=== PATIENT | female | born 1975 | race Caucasian/White ===

== ENCOUNTER 2019-06-27 23:12 | Emergency (ER) | payer MEDICAID, SELFPAY ==
[~2019-06-27] VITALS: Ht 68.6 cm; Wt 78.5 kg
--- NOTE | 2019-06-27 23:12 | NUR ---
PT TAKEN TO BED 12
[2019-06-27 23:14] VITALS: BP 124/83
--- NOTE | 2019-06-27 23:30 | NUR ---
44F PRESENTS TO ED WITH DAUGHTER C/O BODY ACHES ON BLE AND CHEST AND SUBJECTIVE FEVER X1 DAY. PT STATES SHE TOOK TYLENOL TODAY. PT AFEBRILE AT THIS TIME. CBL SOUNDS. S1S2 PRESENT THROUGHOUT. -LOC, -N/V/D, -FEVER PMH: DEVEN SESAY
--- NOTE | 2019-06-27 23:42 | NUR ---
DR GANN AT BEDSIDE EVALUATING PATIENT.
[2019-06-27] MEDS ORDERED: KETOROLAC 60 MG/2 ML VIAL IM ONE (23:45)
--- NOTE | 2019-06-27 23:50 | NUR ---
COVID SWAB, FLU SWAB COLLECTED AND SENT TO LAB
--- NOTE | 2019-06-27 23:56 | NUR ---
PT MEDICATED WITH TORADOL IM, TOLERATED WELL. NADR
[2019-06-28 00:38] VITALS: BP 124/83
[2019-07-07] MEDS ORDERED: METF850T PO (01:16)
[2019-07-10] MEDS ORDERED: ZINC220C28 PO ×2 (11:46→14:01)
[2019-07-10] MEDS ORDERED: ASPI-1822 PO ×2 (11:46→13:59)
== END 2019-06-28 00:39 | disposition home or self-care (01) ==
LOC: EEVIPCON 23:12 → MED 23:12
DX: R50.9 Fever, unspecified (principal); Z20.828 Contact with and (suspected) exposure to other viral communicable diseases; M79.10 Myalgia, unspecified site; R05 Cough; E11.9 Type 2 diabetes mellitus without complications
CPT/HCPCS: 81002; 81025; 87804; 96372; 99283; C9803; J1885; U0003; 36415

== ENCOUNTER 2019-07-03 08:50 | Emergency (ER) | payer MEDICAID, SELFPAY ==
[~2019-07-03] VITALS: Ht 142.2 cm; Wt 68.0 kg
[2019-07-03 09:09] VITALS: BP 115/88
--- NOTE | 2019-07-03 09:15 | NUR ---
COVID HOSPITAL POLICY FOLLOWED PT ENTERED ER WITH MASK PT PLACED ON ISOLATION ROOM COVID COVID SIGN / SIGN-IN SHEET AT BEDSIDE RN FULL PPE
--- NOTE | 2019-07-03 09:15 | NUR ---
44 Y/O F C/C FRONTAL HEADACHE X 3 DAYS. PAIN 8/10, SHARP, NON RADIATING, WITH DIZZINESS. DENIES TRAUMA/HEAD INJURY. NEURO WNL. PUPILS PERRLA. CRANIAL NERVES II,III,IV, INTACT. NO FACIAL ASYMMETRY NOTED, NO SLURRED SPEECH, EQUAL STRENGTH IN ALL EXTREMITIES. PT NKA. HX DM. NO RX. NO NVD. PT PRESENTS IN NO RESPIRATORY DISTRESS. EUPNIC, 97% RA. SIDE RAIL X1. Addendum: 07/03/19 at 1016 by MEDOF PT CONFIRMED POSITIVE COVID
[2019-07-03] MEDS ORDERED: KETOROLAC 30 MG/ML VIAL IVP ONE (09:20)
--- NOTE | 2019-07-03 09:20 | NUR ---
ERMD AT BEDSIDE
--- NOTE | 2019-07-03 09:38 | NUR ---
Dr. Rivas is evaluating the patient at bedside.
[2019-07-03] MEDS ORDERED: PROMETH/CODEINE 6.25-10MG/5ML 5 ML UDC PO ONE (09:45)
[2019-07-03] MEDS ORDERED: ALBUTEROL HFA MDI 90 MCG/ACTUATION 8 GM INH ONE (09:45)
[2019-07-03] MEDS ORDERED: NACL 0.9% 1,000 ML IV ONE (09:45)
--- NOTE | 2019-07-03 10:02 | NUR ---
PT RESTING IN BED, SIDE RAIL X1
--- NOTE | 2019-07-03 10:07 | NUR ---
LAB AT BEDSIDE
--- NOTE | 2019-07-03 10:14 | NUR ---
RAD AT BEDSIDE
[2019-07-03 10:34] LABS: BASOPHILS % (AUTO) 0.3 % (0.0-2.0); HEMATOCRIT 36.8 % (36-48); HEMOGLOBIN 12.5 g/dL (12.0-16.0); LYMPHOCYTES # (AUTO) 0.6 K/uL (2.5-16.5); LYMPHOCYTES % (AUTO) 13.8 % (20.5-51.1); MEAN CORPUSCULAR HEMOGLOBIN 32 pg (27-31); MEAN CORPUSCULAR HGB CONC 34 g/dL (33-37); MEAN CORPUSCULAR VOLUME 94.1 fL (80-94); MONOCYTES # (AUTO) 0.3 K/uL (0.8-1.0); MONOCYTES % (AUTO) 5.5 % (1.7-9.3); NEUTROPHILS # (AUTO) 3.8 K/uL (1.8-7.7); NEUTROPHILS % (AUTO) 80.4 % (42.2-75.2); PLATELET COUNT (AUTO) 190 K/uL (140-450); RED BLOOD CELL COUNT(AUTO) 3.91 MIL/uL (4.20-5.40); RED CELL DISTRIBUTION WIDTH 12.4 % (11.6-13.7); WHITE BLOOD COUNT (AUTO) 4.7 K/uL (4.8-10.8)
[2019-07-03] MEDS ORDERED: AZITHROMYCIN 250 MG TAB PO ONE (10:50)
--- NOTE | 2019-07-03 10:58 | NUR ---
PT RESTING IN BED, EUPNIC, SIDE RAIL X1
[2019-07-03] MEDS ORDERED: MORPHINE SULFATE 2 MG/ML SYR IVP ONE (11:00)
--- NOTE | 2019-07-03 11:08 | NUR ---
PT 93% RA, PLACED ON 2L NC 99%. COMPLAINTS OF SLIGHT SOB, NO RESPIRATORY DISTRESS, PT EUPNIC.
[2019-07-03 11:12] LABS: PROTHROMBIN TIME 9.5 secs (10.8-13.4)
[2019-07-03 11:14] LABS: ALBUMIN 2.8 g/dL (3.4-5.0); ANION GAP 12.9 (8-16); CARBON DIOXIDE 28.4 mmol/L (21-32); CREATININE 0.7 mg/dL (0.6-1.3); POTASSIUM 3.3 mmol/L (3.5-5.1); TOTAL BILIRUBIN 0.5 mg/dL (0.0-1.0)
--- NOTE | 2019-07-03 11:51 | NUR ---
PT RESTING IN BED, SIDE RAIL X1, EUPNIC. CELL PHONE GIVEN TO PT.
[2019-07-03 12:03] VITALS: BP 118/80
--- NOTE | 2019-07-03 12:03 | NUR ---
Patient discharged with v/s stable. Written and verbal after care instructions given and explained. Patient alert, oriented and verbalized understanding of instructions. Ambulatory with steady gait. All questions addressed prior to discharge. ID band removed. Patient advised to follow up with PMD. Rx of AZITHROMYCIN,IBUPROFEN,PROMETHAZINE,ALBUTEROL given. Patient educated on indication of medication including possible reaction and side effects. Opportunity to ask questions provided and answered.
[2019-07-07] MEDS ORDERED: METF850T PO (01:16)
[2019-07-10] MEDS ORDERED: ZINC220C28 PO ×2 (11:46→14:01)
[2019-07-10] MEDS ORDERED: ASPI-1822 PO ×2 (11:46→13:59)
== END 2019-07-03 12:03 | disposition home or self-care (01) ==
LOC: MED 08:50 → EEVIPCON 08:50 → MED 12:03
DX: U07.1 COVID-19 (principal); R51 Headache; J18.9 Pneumonia, unspecified organism; E87.6 Hypokalemia; E11.9 Type 2 diabetes mellitus without complications
CPT/HCPCS: 36415; 71045; 80053; 83605; 83615; 85025; 85610; 85730; 86140; 87040; 94664; 96374; 96375; 99284; J1885; J2270; J7030

== ENCOUNTER 2020-07-05 19:15 | Emergency (ER) | payer MEDICAID, SELFPAY ==
[~2020-07-05] VITALS: Ht 144.8 cm; Wt 59.9 kg
[~2020-07-05 19:15] MED LIST: ASPI-1822 PO; METF850T PO; ZINC220C28 PO
[2020-07-05 19:27] VITALS: BP 114/77
--- NOTE | 2020-07-05 19:43 | NUR ---
PATIENT BIB SELF FOR C/O 11/19 RLQ/SUPRAPUBIC TENDERNESS X 5 DAYS. PATIENT REPORTS THE PAIN HAS GOTTEN WORSE IN THE LAST 24 HOURS. PATIENT REPORTS SHE WAS DX WITH UTI 5 DAYS AGO AND HAS BEEN TAKING CIPRO RX. PATIENT REPORTS PAIN IS "PULSATING" BUT DOES NOT RADIATE. PATIENT DENIES N/V/D, FEVER, CHILLS, SOB, CP. PATIENT DENIES OTC PAIN MEDICATION FOR RELIEF. PATIENT DENIES PAIN, URGENCY OR FREQUENCY WITH URINATION AT THIS TIME. SEE COMPLETE ASSESSMENT FOR FURTHER DETAILS. MED HX: DM ALLERGIES: NKA
[2020-07-05] MEDS ORDERED: KETOROLAC 60 MG/2 ML VIAL IM ONE (19:50)
--- NOTE | 2020-07-05 20:32 | NUR ---
ERMD AT BEDSIDE.
--- NOTE | 2020-07-05 20:41 | NUR ---
22 G L AC STARTED, LABS DRAWN AND HAND GIVEN TO YG REGULAT[employer] AFFAIRS MANAGER, AT BEDSIDE.
[2020-07-05 20:48] LABS: APPEARANCE,URINE CLEAR (CLEAR); BILIRUBIN,URINE NEGATIVE (NEGATIVE); BLOOD, URINE NEGATIVE (NEGATIVE); COLOR,URINE YELLOW (YELLOW); LEUKOCYTE ESTERASE ,URINE NEGATIVE (NEGATIVE); NITRITE, URINE NEGATIVE (NEGATIVE); PH,URINE 5.5 (5.0-9.0); UGLUCOSE 3+ (NEGATIVE)
[2020-07-05 20:52] LABS: BASOPHILS # (AUTO) 0.2 K/uL (0.00-0.22); BASOPHILS % (AUTO) 2.1 % (0.0-2.0); EOSINOPHILS # (AUTO) 0.2 K/uL (0-0.4); EOSINOPHILS % (AUTO) 1.9 % (0.0-4.0); HEMATOCRIT 40.2 % (36-48); HEMOGLOBIN 13.6 g/dL (12.0-16.0); LYMPHOCYTES # (AUTO) 2.5 K/uL (2.5-16.5); LYMPHOCYTES % (AUTO) 27.7 % (20.5-51.1); MEAN CORPUSCULAR HEMOGLOBIN 32 pg (27-31); MEAN CORPUSCULAR HGB CONC 34 g/dL (33-37); MEAN CORPUSCULAR VOLUME 95.4 fL (80-94); MONOCYTES # (AUTO) 0.5 K/uL (0.8-1.0); MONOCYTES % (AUTO) 4.9 % (1.7-9.3); NEUTROPHILS # (AUTO) 5.8 K/uL (1.8-7.7); NEUTROPHILS % (AUTO) 63.4 % (42.2-75.2); PLATELET COUNT (AUTO) 304 K/uL (140-450); RED BLOOD CELL COUNT(AUTO) 4.22 MIL/uL (4.20-5.40); RED CELL DISTRIBUTION WIDTH 12.8 % (11.6-13.7); WHITE BLOOD COUNT (AUTO) 9.2 K/uL (4.8-10.8)
--- NOTE | 2020-07-05 20:56 | NUR ---
PT BEING TAKEN TO CT BY TECH VIA W.C.
[2020-07-05 21:04] LABS: ALBUMIN 3.9 g/dL (3.4-5.0); ANION GAP 11.7 (8-16); CARBON DIOXIDE 28.3 mmol/L (21-32); CREATININE 0.6 mg/dL (0.6-1.3); TOTAL BILIRUBIN 0.8 mg/dL (0.0-1.0)
--- NOTE | 2020-07-05 21:05 | NUR ---
PT RETURNED FROM CT VIA W.C.
--- NOTE | 2020-07-05 21:20 | NUR ---
ERMD AT BEDSIDE.
[2020-07-05] MEDS ORDERED: IBUP-2213 PO (21:27)
[2020-07-05 21:34] VITALS: BP 106/78
--- NOTE | 2020-07-05 21:34 | NUR ---
Patient discharged with v/s stable. Written and verbal after care instructions given and explained. Patient alert, oriented and verbalized understanding of instructions. Ambulatory with steady gait. All questions addressed prior to discharge. ID band removed. Patient advised to follow up with PMD. Rx of IBUPROFEN given. Patient educated on indication of medication including possible reaction and side effects. Opportunity to ask questions provided and answered. DAUGHTER AT SIDE.
== END 2020-07-05 21:34 | disposition home or self-care (01) ==
LOC: MED 19:15
DX: R10.9 Unspecified abdominal pain (principal); R30.0 Dysuria; E11.9 Type 2 diabetes mellitus without complications; Z79.84 Long term (current) use of oral hypoglycemic drugs; Z79.82 Long term (current) use of aspirin; Z79.899 Other long term (current) drug therapy
CPT/HCPCS: 36415; 74176; 80053; 81003; 81025; 83690; 85025; 96372; 99284; J1885

== ENCOUNTER 2020-10-05 19:47 | Emergency (ER) | payer MEDICAID ==
[~2020-10-05] VITALS: Ht 149.9 cm; Wt 59.4 kg
[~2020-10-05 19:47] MED LIST changes: +IBUP-2213 PO
[2020-10-05 20:00] VITALS: BP 129/70
--- NOTE | 2020-10-05 20:04 | NUR ---
BIBA TO ER BED 9
[2020-10-05] MEDS: diazePAM 5 MG TAB PO ONE (20:45)
--- NOTE | 2020-10-05 20:46 | NUR ---
xray at bedside
[2020-10-05 20:50] LABS: BASOPHILS % (AUTO) 0.4 % (0.0-2.0); EOSINOPHILS # (AUTO) 0.1 K/uL (0-0.4); EOSINOPHILS % (AUTO) 1.3 % (0.0-4.0); HEMATOCRIT 39.8 % (36-48); HEMOGLOBIN 13.7 g/dL (12.0-16.0); LYMPHOCYTES # (AUTO) 2.8 K/uL (2.5-16.5); LYMPHOCYTES % (AUTO) 29.3 % (20.5-51.1); MEAN CORPUSCULAR HEMOGLOBIN 33 pg (27-31); MEAN CORPUSCULAR HGB CONC 34 g/dL (33-37); MONOCYTES # (AUTO) 0.6 K/uL (0.8-1.0); MONOCYTES % (AUTO) 6.1 % (1.7-9.3); NEUTROPHILS % (AUTO) 62.9 % (42.2-75.2); PLATELET COUNT (AUTO) 283 K/uL (140-450); RED BLOOD CELL COUNT(AUTO) 4.18 MIL/uL (4.20-5.40); RED CELL DISTRIBUTION WIDTH 12.9 % (11.6-13.7); WHITE BLOOD COUNT (AUTO) 9.5 K/uL (4.8-10.8)
[2020-10-05 21:20] LABS: ANION GAP 11.6 (8-16); CARBON DIOXIDE 29.1 mmol/L (21-32); CREATININE 0.7 mg/dL (0.6-1.3); POTASSIUM 3.7 mmol/L (3.5-5.1)
[2020-10-05] MEDS ORDERED: HYDR25CA10 PO (22:08)
[2020-10-05] MEDS ORDERED: IBUP-2213 PO (22:08)
[2020-10-05 22:22] VITALS: BP 105/64
--- NOTE | 2020-10-05 22:22 | NUR ---
Patient discharged with v/s stable. Written and verbal after care instructions given and explained. Patient alert, oriented and verbalized understanding of instructions. Ambulatory with steady gait. All questions addressed prior to discharge. ID band removed. Patient advised to follow up with PMD. Rx of hydroxyzine pamoate and ibuprofen given. Patient educated on indication of medication including possible reaction and side effects. Opportunity to ask questions provided and answered.
== END 2020-10-05 22:22 | disposition home or self-care (01) ==
LOC: MED 19:47
DX: F41.9 Anxiety disorder, unspecified (principal)
CPT/HCPCS: 36415; 71045; 80053; 84484; 85025; 93005; 99285

== ENCOUNTER 2021-10-18 17:07 | Emergency (ER) | payer MEDICAID ==
[~2021-10-18] VITALS: Ht 154.9 cm; Wt 70.8 kg
[~2021-10-18 17:07] MED LIST changes: +HYDR25CA10 PO; +METF-713 PO; -METF850T PO
[2021-10-18 17:31] VITALS: BP 121/56
[2021-10-18] MEDS ORDERED: KETOROLAC 30 MG/ML VIAL IVP ONE (18:35)
[2021-10-18] MEDS ORDERED: ONDANSETRON 4 MG/2 ML VIAL IVP ONE (18:35)
[2021-10-18] MEDS ORDERED: KETOROLAC 30 MG/ML VIAL ONE (18:40)
[2021-10-18] MEDS ORDERED: ONDANSETRON 4 MG/2 ML VIAL ONE (18:40)
[2021-10-18 19:05] LABS: BASOPHILS % (AUTO) 0.3 % (0.0-2.0); EOSINOPHILS # (AUTO) 0.1 K/uL (0-0.4); EOSINOPHILS % (AUTO) 0.9 % (0.0-4.0); HEMATOCRIT 36.6 % (36-48); HEMOGLOBIN 12.5 g/dL (12.0-16.0); LYMPHOCYTES # (AUTO) 2.5 K/uL (2.5-16.5); MEAN CORPUSCULAR HEMOGLOBIN 33 pg (27-31); MEAN CORPUSCULAR HGB CONC 34 g/dL (33-37); MEAN CORPUSCULAR VOLUME 95.3 fL (80-94); MONOCYTES # (AUTO) 0.5 K/uL (0.8-1.0); MONOCYTES % (AUTO) 5.3 % (1.7-9.3); NEUTROPHILS # (AUTO) 5.8 K/uL (1.8-7.7); NEUTROPHILS % (AUTO) 65.5 % (42.2-75.2); PLATELET COUNT (AUTO) 314 K/uL (140-450); RED BLOOD CELL COUNT(AUTO) 3.84 MIL/uL (4.20-5.40); RED CELL DISTRIBUTION WIDTH 12.8 % (11.6-13.7); WHITE BLOOD COUNT (AUTO) 8.9 K/uL (4.8-10.8)
--- NOTE | 2021-10-18 19:30 | NUR ---
Patient lying in bed, resting comfortbaly, chest rise and fall symmetrical, no s/s of distress, patient stated pain "03/22."
[2021-10-18 19:33] LABS: ALBUMIN 3.4 g/dL (3.4-5.0); ANION GAP 12.6 (8-16); ASPARTATE AMINOTRANSFERASE 12 U/L (15-37); CARBON DIOXIDE 27.6 mmol/L (21-32); CHLORIDE 104 mmol/L (98-107); CREATININE 0.6 mg/dL (0.6-1.3); GFR ARICAN-AMERICAN 138 mL/min (>90); GLUCOSE 233 mg/dL (74-106); POTASSIUM 4.2 mmol/L (3.5-5.1); SODIUM SERUM 140 mmol/L (136-145); TOTAL BILIRUBIN 0.5 mg/dL (0.0-1.0); UREA NITROGEN, BLOOD 15 mg/dL (7-18)
--- NOTE | 2021-10-18 19:40 | NUR ---
ER physician at bedside speaking with patient.
--- NOTE | 2021-10-18 20:39 | NUR ---
Patient lying in bed, resting comfortbaly, chest rise and fall symmetrical, no s/s of distress, patient stated pain "02/19."
[2021-10-18] MEDS ORDERED: IBUP-2213 PO (21:37)
[2021-10-18 21:54] VITALS: BP 131/62
== END 2021-10-18 21:56 | disposition home or self-care (01) ==
LOC: MED 17:07
DX: M94.0 Chondrocostal junction syndrome [Tietze] (principal); E11.65 Type 2 diabetes mellitus with hyperglycemia; R07.89 Other chest pain; Z79.4 Long term (current) use of insulin; Z79.899 Other long term (current) drug therapy
CPT/HCPCS: 36415; 71045; 80053; 84484; 85025; 93005; 96374; 96375; 99285; J1885; J2405

== ENCOUNTER 2022-01-16 11:20 | Emergency (ER) | payer MEDICAID ==
[~2022-01-16] VITALS: Ht 154.9 cm; Wt 65.8 kg
[2022-01-16 11:42] VITALS: BP 112/68
[2022-01-16] MEDS ORDERED: FAMOTIDINE 20 MG TAB PO ONE (11:50)
[2022-01-16] MEDS ORDERED: ONDANSETRON 4 MG ODT PO ONE (11:50)
[2022-01-16] MEDS ORDERED: ALUMINUM HYD/MAG/SIMETHICONE 30 ML UDC PO ONE (11:50)
--- NOTE | 2022-01-16 12:09 | NUR ---
LAB AT BEDSIDE
[2022-01-16 12:34] LABS: BASOPHILS % (AUTO) 0.7 % (0.0-2.0); EOSINOPHILS # (AUTO) 0.1 K/uL (0-0.4); EOSINOPHILS % (AUTO) 1.7 % (0.0-4.0); HEMATOCRIT 38.8 % (36-48); HEMOGLOBIN 13.4 g/dL (12.0-16.0); LYMPHOCYTES # (AUTO) 1.7 K/uL (2.5-16.5); LYMPHOCYTES % (AUTO) 26.3 % (20.5-51.1); MEAN CORPUSCULAR HEMOGLOBIN 33 pg (27-31); MEAN CORPUSCULAR HGB CONC 35 g/dL (33-37); MEAN CORPUSCULAR VOLUME 93.7 fL (80-94); MONOCYTES # (AUTO) 0.3 K/uL (0.8-1.0); MONOCYTES % (AUTO) 4.9 % (1.7-9.3); NEUTROPHILS # (AUTO) 4.3 K/uL (1.8-7.7); NEUTROPHILS % (AUTO) 66.4 % (42.2-75.2); PLATELET COUNT (AUTO) 276 K/uL (140-450); RED BLOOD CELL COUNT(AUTO) 4.14 MIL/uL (4.20-5.40); RED CELL DISTRIBUTION WIDTH 12.5 % (11.6-13.7); WHITE BLOOD COUNT (AUTO) 6.4 K/uL (4.8-10.8)
[2022-01-16 12:35] LABS: APPEARANCE,URINE CLEAR (CLEAR); BILIRUBIN,URINE NEGATIVE (NEGATIVE); BLOOD, URINE NEGATIVE (NEGATIVE); COLOR,URINE YELLOW (YELLOW); LEUKOCYTE ESTERASE ,URINE NEGATIVE (NEGATIVE); NITRITE, URINE NEGATIVE (NEGATIVE); PH,URINE 5.5 (5.0-9.0); UGLUCOSE 3+ (NEGATIVE)
[2022-01-16 12:37] LABS: ALBUMIN 3.7 g/dL (3.4-5.0); ANION GAP 12.1 (8-16); CARBON DIOXIDE 31.4 mmol/L (21-32); CREATININE 0.7 mg/dL (0.6-1.3); POTASSIUM 4.5 mmol/L (3.5-5.1); TOTAL BILIRUBIN 0.5 mg/dL (0.0-1.0)
[2022-01-16 12:50] LABS: RBC,URINE NONE SEEN /HPF (0-5); WBC,URINE 0-5 /HPF (0-5)
--- NOTE | 2022-01-16 13:19 | NUR ---
TOLERATED PO CHALLENGE
[2022-01-16] MEDS ORDERED: ONDA-188 PO (13:34)
[2022-01-16] MEDS ORDERED: FAMO-92 PO (13:34)
[2022-01-16 13:43] VITALS: BP 121/70
--- NOTE | 2022-01-16 13:44 | NUR ---
Patient discharged with v/s stable. Written and verbal after care instructions given and explained. Patient alert, oriented and verbalized understanding of instructions. Ambulatory with steady gait. All questions addressed prior to discharge. ID band removed. Patient advised to follow up with PMD. Rx of PEPCID, ZOFRAN given. Patient educated on indication of medication including possible reaction and side effects. Opportunity to ask questions provided and answered.
== END 2022-01-16 13:44 | disposition home or self-care (01) ==
LOC: MED 11:20
DX: E11.65 Type 2 diabetes mellitus with hyperglycemia (principal); K29.70 Gastritis, unspecified, without bleeding; Z79.4 Long term (current) use of insulin; Z79.899 Other long term (current) drug therapy
CPT/HCPCS: 36415; 80053; 81001; 83690; 85025; 99284; Q0162